=== PATIENT | female | born 1980 | race Caucasian/White ===

== ENCOUNTER 2019-01-18 08:33 | Emergency (ER) | payer MEDICARE, MEDICAID ==
--- NOTE | 2019-01-18 08:57 | EDM.PDOC ---
ED HPI GENERAL MEDICAL PROBLEM - General Chief Complaint: Syncope Stated Complaint: WEAK,UNRESPONSIVE Time Seen by Provider: 01/18/19 08:57 Source of Information: Reports: Patient, Family (mother) History Limitations: Reports: No Limitations - History of Present Illness INITIAL COMMENTS - FREE TEXT/NARRATIVE: 38-year-old female who is mildly mentally handicapped presents to the ED with both parents. Staying with her parents last night. She went down to have a shower this morning and mother was nearby. She appreciated that she went down in the shower and then attended her. She got out of the shower but then as she stood up she then fainted and mother had to help her down to the floor. She was unresponsive for a good 30 seconds but the when she came around she can converse normally and there was no shaking to suggest seizure-like activity. She has not yet had anything to eat or drink. She was getting ready to go to restoration this morning. Mother believes that she ate and drank all 3 meals yesterday. He lives alone at night usually. She denies being sick recently with any fever chills cough or sputum production. Denies that she was having any abdominal pain or cramping. Has not prone to urinary tract infection. On examination here she is definitely orthostatic with BP dropping to 83 systolic with standing and 102 lying. There's been no recent history of nausea vomiting or diarrhea. She currently takes no medications Onset: Today Onset Date: 01/18/19 Onset Time: 08:15 Duration: Minutes: Location: Reports: Generalized (Syncopal event occurred after getting out of the shower this morning. Was unresponsive for good 30 seconds. Mother witnessed the episode and she had no seizure-like activity.) Quality: Reports: Other Severity: Moderate (Syncopal event after getting out of the shower this morning) Improves with: Reports: Other Worsens with: Reports: None (Patient states she feels okay now.) Context: Reports: Other (Expresses syncopal event while in the shower this morning and went down to the floor after she was assisted out of the shower by her mother.). Denies: Activity, Exercise, Lifting, Sick Contact, Trauma Associated Symptoms: Reports: Malaise, Weakness. Denies: Confusion, Chest Pain , Cough, cough w sputum, Diaphoresis, Fever/Chills, Headaches, Loss of Appetite , Nausea/Vomiting, Rash, Seizure, Shortness of Breath, Syncope Treatments [employer]AND[employer]ACHINE: Reports: Other (see below) (None.) - Related Data Allergies Allergy/AdvReac Type Severity Reaction Status Date / Time No Known Allergies Allergy Verified 01/18/19 08:52 Home Meds: Home Meds Aspirin [Cyril Chewable] 81 mg PO DAILY 01/18/19 [History] Multivitamin [Multivitamins] 1 each PO DAILY 01/18/19 [History] Nitrofurantoin Monohyd/M-Cryst [Macrobid 100 mg Capsule] 100 mg PO BID #9 capsule 01/18/19 [Rx] Past Medical History - History Comment History Comment: Has microcephaly and Down syndrome Social & Family History - Living Situation & Occupation Living situation: Reports: Single Occupation: Unemployed (Patient is mentally handicapped due to Down syndrome and is unemployed. She does live outside her parents home usually alone during the night.) ED ROS GENERAL - Review of Systems Review Of Systems: See Below Constitutional: Reports: Weakness. Denies: Fever, Chills, Malaise, Fatigue ( This morning), Night Sweats, Diaphoresis, Decreased Appetite, Weight Loss, Weight Gain HEENT: Reports: Glasses, Hearing Loss (Left-sided hearing aid.), Other Respiratory: Reports: No Symptoms Cardiovascular: Reports: No Symptoms Endocrine: Reports: No Symptoms GI/Abdominal: Reports: No Symptoms : Reports: No Symptoms Musculoskeletal: Reports: No Symptoms Skin: Reports: No Symptoms Neurological: Reports: Syncope Psychiatric: Reports: No Symptoms (Fainted this morning after getting out of the shower) Hematologic/Lymphatic: Reports: No Symptoms Immunologic: Reports: No Symptoms - Physical Exam Exam: See Below Exam Limited By: Physical Impairment (Her speech is hard to discern at times. She has Down syndrome.) General Appearance: Alert, WD/WN, No Apparent Distress, Other (Her abdomen and chest or posterior back feel slightly warm to palpation. Temperatures recorded at 36.3 and will be rechecked) Eye Exam: Bilateral Eye: Normal Inspection Ears: Normal TMs, Other (Hearing aid left ear) Throat/Mouth: Other (Tongue is mildly dry and coated. Oropharynx otherwise clear ) Head Exam: Other (Microcephaly.) Neck: Normal Inspection, Supple, Non-Tender, Full Range of Motion. No: Lymphadenopathy (R) Respiratory/Chest: No Respiratory Distress, Lungs Clear, Normal Breath Sounds, No Accessory Muscle Use Cardiovascular: Normal Peripheral Pulses, Regular Rate, Rhythm, No Edema, No Murmur, No Rub GI/Abdominal: Normal Bowel Sounds, Soft, Non-Tender, No Organomegaly, No Abnormal Bruit, No Mass, Pelvis Stable Neuro Exam (Abbreviated): Alert, Oriented, CN II-XII Intact, Normal Cognition, Normal Reflexes Back Exam: Normal Inspection, Full Range of Motion. No: CVA Tenderness (L), CVA Tenderness (R) Extremities: Normal Inspection, Normal Range of Motion, Non-Tender, No Pedal Edema Psychiatric: Normal Mood Skin Exam: Warm, Dry, Intact, Normal Color, No Rash EKG INTERPRETATION EKG Date: 01/18/19 Time: 09:20 Rhythm: NSR Rate (Beats/Min): 60 [place]: Normal P-Wave: Enlarged (Consider left atrial hypertrophy. T wave is inverted in lead V1.) QRS: Normal ST-T: Normal QT: Normal EKG Interpretation Comments: Borderline ECG Course - Vital Signs Last Recorded V/S: Last Vital Signs Temp 36.3 C 01/18/19 08:48 Pulse 67 01/18/19 08:48 Resp 17 01/18/19 08:48 BP 118/72 01/18/19 08:48 Pulse Ox 100 01/18/19 08:48 Orthostatic Blood Pressure [ 100/61 Standing] Orthostatic Blood Pressure [ 97/58 Sitting] Orthostatic Blood Pressure [ 96/63 Supine] - Orders/Labs/Meds Orders: Active Orders 24 hr Category Date Time Status EKG Documentation Completion [RC] STAT Care 01/18/19 08:56 Active Orthostatic Vital Signs [RC] ASDIRECTED Care 01/18/19 08:55 Active Orthostatic Vital Signs [RC] ASDIRECTED Care 01/18/19 08:56 Active CULTURE URINE [RM] Stat Lab 01/18/19 11:30 Ordered Dextrose 5%-0.9% NaCl [Dextrose 5%-Normal Saline] 1,000 Med 01/18/19 09:00 Active ml IV ASDIRECTED Nitrofurantoin [place]/Macrocryst [Macrobid] Med 01/18/19 11:30 Once 100 mg PO ONETIME ONE Medication Orders Dextrose/Sodium Chloride (Dextrose 5%-Normal Saline) 1,000 mls @ 250 mls/hr IV ASDIRECTED GIOVANA Last Admin: 01/18/19 09:15 Dose: 999 mls/hr Labs: Laboratory Tests 01/18/19 01/18/19 01/18/19 Range/Units 09:05 09:05 09:05 WBC 4.91 (3.98-10.04) K/mm3 RBC 4.75 (3.98-5.22) M/mm3 Hgb 16.8 H (11.2-15.7) gm/L Hct 46.5 H (34.1-44.9) % MCV 97.9 H (79.4-94.8) fl MCH 35.4 H (25.6-32.2) pg MCHC 36.1 H (32.2-35.5) g/dl RDW Std Deviation 45.9 (36.4-46.3) fL Plt Count 213 (182-369) K/mm3 MPV 10.5 (9.4-12.3) fl Neutrophils % (Manual) 72 H (40-60) % Band Neutrophils % 0 (0-10) % Lymphocytes % (Manual) 20 (20-40) % Atypical Lymphs % 0 % Monocytes % (Manual) 8 (2-10) % Eosinophils % (Manual) 0 L (0.7-5.8) % Basophils % (Manual) 0 L (0.1-1.2) Platelet Estimate Adequate RBC Morph Comment Normal Sodium 139 (136-145) mEq/L Potassium 4.4 (3.5-5.1) mEq/L Chloride 104 (98-107) mEq/L Carbon Dioxide 26 (21-32) mEq/L Anion Gap 13.4 (5-15) BUN 20 H (7-18) mg/dL Creatinine 1.2 H (0.55-1.02) mg/dL Est Cr Clr Drug Dosing 57.20 mL/min Estimated GFR (MDRD) 50 (>60) mL/min BUN/Creatinine Ratio 16.7 (14-18) Glucose 97 (74-106) mg/dL Calcium 8.9 (8.5-10.1) mg/dL Total Bilirubin 0.7 (0.2-1.0) mg/dL AST 32 (15-37) U/L ALT 49 (14-59) U/L Alkaline Phosphatase 120 H (46-116) U/L Troponin I 0.019 (0.00-0.056) ng/mL C-Reactive Protein 2.2 H* (<1.0) mg/dL Total Protein 7.9 (6.4-8.2) g/dl Albumin 3.4 (3.4-5.0) g/dl Globulin 4.5 gm/dL Albumin/Globulin Ratio 0.8 L (1-2) HCG, Qual Negative (NEGATIVE) Urine Color (Yellow) Urine Appearance (Clear) Urine pH (5.0-8.0) Ur Specific [place] (1.005-1.030) Urine Protein (Negative) Urine Glucose (UA) (Negative) Urine Ketones (Negative) Urine Occult Blood (Negative) Urine Nitrite (Negative) Urine Bilirubin (Negative) Urine Urobilinogen (0.2-1.0) Ur Leukocyte Esterase (Negative) Urine RBC (0-5) /hpf Urine WBC (0-5) /hpf Ur Epithelial Cells (0-5) /hpf Amorphous Sediment (NOT SEEN) /hpf Urine Bacteria (FEW) /hpf Urine Mucus (FEW) /hpf 01/18/19 Range/Units 10:30 WBC (3.98-10.04) K/mm3 RBC (3.98-5.22) M/mm3 Hgb (11.2-15.7) gm/L Hct (34.1-44.9) % MCV (79.4-94.8) fl MCH (25.6-32.2) pg MCHC (32.2-35.5) g/dl RDW Std Deviation (36.4-46.3) fL Plt Count (182-369) K/mm3 MPV (9.4-12.3) fl Neutrophils % (Manual) (40-60) % Band Neutrophils % (0-10) % Lymphocytes % (Manual) (20-40) % Atypical Lymphs % % Monocytes % (Manual) (2-10) % Eosinophils % (Manual) (0.7-5.8) % Basophils % (Manual) (0.1-1.2) Platelet Estimate RBC Morph Comment Sodium (136-145) mEq/L Potassium (3.5-5.1) mEq/L Chloride (98-107) mEq/L Carbon Dioxide (21-32) mEq/L Anion Gap (5-15) BUN (7-18) mg/dL Creatinine (0.55-1.02) mg/dL Est Cr Clr Drug Dosing mL/min Estimated GFR (MDRD) (>60) mL/min BUN/Creatinine Ratio (14-18) Glucose (74-106) mg/dL Calcium (8.5-10.1) mg/dL Total Bilirubin (0.2-1.0) mg/dL AST (15-37) U/L ALT (14-59) U/L Alkaline Phosphatase (46-116) U/L Troponin I (0.00-0.056) ng/mL C-Reactive Protein (<1.0) mg/dL Total Protein (6.4-8.2) g/dl Albumin (3.4-5.0) g/dl Globulin gm/dL Albumin/Globulin Ratio (1-2) HCG, Qual (NEGATIVE) Urine Color Yellow (Yellow) Urine Appearance Clear (Clear) Urine pH 6.5 (5.0-8.0) Ur Specific [place] 1.010 (1.005-1.030) Urine Protein Negative (Negative) Urine Glucose (UA) Trace H (Negative) Urine Ketones Negative (Negative) Urine Occult Blood Negative (Negative) Urine Nitrite Negative (Negative) Urine Bilirubin Negative (Negative) Urine Urobilinogen 0.2 (0.2-1.0) Ur Leukocyte Esterase Trace H (Negative) Urine RBC 0-5 (0-5) /hpf Urine WBC 5-10 H (0-5) /hpf Ur Epithelial Cells 0-5 (0-5) /hpf Amorphous Sediment Few H (NOT SEEN) /hpf Urine Bacteria Few (FEW) /hpf Urine Mucus Few (FEW) /hpf Meds: Medications Generic Name Dose Route Start Last Admin Trade Name Freq PRN Reason Stop Dose Admin Dextrose/Sodium Chloride 1,000 mls @ 250 mls/hr 01/18/19 09:00 01/18/19 09:15 Dextrose 5%-Normal Saline IV 999 mls/hr ASDIRECTED GIOVANA Administration - Radiology Interpretation Free Text/Narrative:: 38-year-old female with Down syndrome presents to the ED after a syncopal event after getting out of the shower this morning at her parents home. She did state her parents home last night. Lives alone. You're getting ready for restoration. Mother was nearby and witnessed that she nearly went down are bent over in the shower. She ate or our the shower and after she stood up completely she then had a syncopal event when she required 8 to the floor. She did not fall or hurt herself. Mother aged her to the floor. After about 30 seconds to minutes she came around and she can speak normally there was no seizure-like activity. In the ED she is found to be orthostatic. BP was 102 systolic lying and 83 standing. Heart rate didn't change that much from 68-78. Examination is otherwise normal with no apparent reason for syncopal event. Her pressure is low. Plan IV D5 normal saline at open. Routine labs and a urinalysis to be obtained as well as an ECG. - Re-Assessments/Exams Free Text/Narrative Re-Assessment/Exam: 01/18/19 10:10 Labs reveal a normal white count at 4.91. Hemoglobin is slightly elevated at 16.8 with hematocrit of 46.5 and is getting some degree of hemoconcentration. MCV is 97.9. Platelet count is 213,000. Neutrophils 72% with no bands. Sodium 139 with potassium of 4.4. Chloride 1043 bicarbonate 26. And a gap is 13.4. BUN is 20 with a creatinine at 1.2. Estimated GFR is 50 BUN/ creatinine ratio 16.7. Glucose is 97 calcium is 8.9 liver function is normal other than slightly elevated alkaline phosphatase days at 120. Troponin I is less than 0.019 C-reactive protein is elevated slightly at 2.2. Total protein 7.9 . Serum hCG was negative 01/18/19 10:50 has completed a liter of IV fluids. Repeat orthostatic exam show blood pressure went up to 100. This makes her very prone to orthostatic hypotension changes. Possibly this was precipitated by hot shower this morning without anything to eat or drink yet today. Awaiting for her urinalysis. 01/18/19 11:30 urinalysis shows trace of leukocyte esterase with 5-10 process per per field. A urine culture will therefore be obtained. It is difficult to tell if she is symptomatic we'll place her on Macrobid 100 mg twice daily for the next 5 days to clear up infection. Departure - Departure Time of Disposition: 11:31 Disposition: Home, Self-Care 01 Condition: Fair Clinical Impression: Primary orthostatic hypotension, Lower urinary tract infection - Discharge Information *PRESCRIPTION DRUG MONITORING PROGRAM REVIEWED*: Not Applicable *COPY OF PRESCRIPTION DRUG MONITORING REPORT IN PATIENT OLIVE: Not Applicable Prescriptions: Nitrofurantoin Monohyd/M-Cryst [Macrobid 100 mg Capsule] 100 mg PO BID #9 capsule Instructions: Syncope, [id number], Hypotension, [id number] Referrals: Anastasia Park NP [Primary Care Provider] - Forms: ED Department Discharge Additional Instructions: Evaluation the emergency room today in regards to drop in blood pressure after showering and developing a syncopal event and collapse to the floor. This occurred from blood pressure dropping too low to supply the brain with adequate blood supply. Testing in the ED at the initial lesion revealed that she did have significant low blood pressure or orthostatic hypotension when you stood up. Usually is from inadequate fluid or volume intake over the last day or 2. I also felt that you had a low-grade fever. Blood workup did not show any elevated white blood cell count but did reveal increased pus cells in the urine suggestive of a low-grade urinary tract infection. Her pressure improved after a liter of IV fluids. You received first tablet of antibiotic for suspected urinary tract infection with Macrobid 100 mg by mouth in the ED. May need Tylenol 650 mg every 6 hours today for fever relief. Ache Macrobid is to be taken twice daily for the next morning half days to clear up infection. The next tablet would be due after supper tonight. Suggest plenty of fluids on a daily basis such as at least one 20 ounce bottle of Gatorade daily to try and keep her blood pressure up as it tends to run very low. This makes you very prone to fainting especially in any kind of hot environment such as a hot tub. Showering. After exercise or standing in one place with winter clothing on etc. - My Orders Last 24 Hours: My Active Orders 01/18/19 08:55 Orthostatic Vital Signs [RC] ASDIRECTED 01/18/19 08:56 EKG Documentation Completion [RC] STAT Orthostatic Vital Signs [RC] ASDIRECTED 01/18/19 09:00 Dextrose 5%-0.9% NaCl [Dextrose 5%-Normal Saline] 1,000 ml IV ASDIRECTED 01/18/19 11:30 CULTURE URINE [RM] Stat Nitrofurantoin [place]/Macrocryst [Macrobid] 100 mg PO ONETIME ONE - Assessment/Plan Last 24 Hours: My Active Orders 01/18/19 08:55 Orthostatic Vital Signs [RC] ASDIRECTED 01/18/19 08:56 EKG Documentation Completion [RC] STAT Orthostatic Vital Signs [RC] ASDIRECTED 01/18/19 09:00 Dextrose 5%-0.9% NaCl [Dextrose 5%-Normal Saline] 1,000 ml IV ASDIRECTED 01/18/19 11:30 CULTURE URINE [RM] Stat Nitrofurantoin [place]/Macrocryst [Macrobid] 100 mg PO ONETIME ONE
[2019-01-18] MEDS ORDERED: Dextrose 5%-0.9% NaCl 1,000 ML IV SCH (09:00)
[2019-01-18] MEDS ORDERED: Dextrose 5%-0.9% NaCl 1,000 ML ONE (09:12)
[2019-01-18] MEDS ORDERED: Nitrofurantoin Monohydrate/Macrocrystalline 100 MG Cap PO ONE (11:30)
== END 2019-01-18 11:51 | disposition home or self-care (01) ==
LOC: JD.ED 08:33
DX: I95.1 Orthostatic hypotension (principal); N39.0 Urinary tract infection, site not specified; Z79.82 Long term (current) use of aspirin
CPT/HCPCS: 36415; 80053; 81001; 84484; 84703; 85007; 85027; 86140; 87086; 93005; 96360; 99285; A9270; J7042; 93010

== ENCOUNTER 2025-04-30 07:09 | Emergency (ER) | payer MEDICARE, MEDICAID ==
[2025-04-30 08:00] LABS: HEMATOCRIT 47.3 % (37.0-47.0); HEMOGLOBIN 17.5 gm/dl (12.0-16.0); LYMPHOCYTES ABSOLUTE AUTO 0.9 K/mm3 (1.0-4.8); LYMPHOCYTES PERCENT AUTO 22.3 % (24.0-44.0); MEAN CORPUSCULAR HEMOGLOBIN 35.9 pg (28.0-32.0); MEAN CORPUSCULAR VOLUME 96.9 fl (83.0-99.0); MEAN PLATELET VOLUME 10.4 fl (9.4-12.3); MONOCYTES ABSOLUTE AUTO 0.5 K/mm3 (0.0-0.8); NEUTROPHILS ABSOLUTE AUTO 2.6 K/mm3 (1.8-7.7); NEUTROPHILS PERCENT AUTO 63.7 % (41.0-71.0); PLATELET COUNT,PLT 202 K/mm3 (150-400); RED BLOOD CELL COUNT 4.88 M/mm3 (4.10-5.30); WHITE BLOOD CELL COUNT,WBC 4.08 K/mm3 (3.9-11.3)
[2025-04-30 08:21] LABS: SLIDE REVIEW ABNORMAL SMEAR
[2025-04-30 08:25] LABS: A/G RATIO 0.8 (1-2); ALBUMIN 3.2 g/dl (3.4-5.0); ANION GAP 12.3 (5-15); BILIRUBIN TOTAL 1.1 mg/dL (0.2-1.0); BUN/CREATININE RATIO 25.5 (14-18); C-REACTIVE PROTEIN 1.62 mg/dL (<0.30); CALCIUM 9.3 mg/dL (8.5-10.1); CREATININE 1.1 mg/dL (0.55-1.02); EST CRCL DRUG DOSING (CG) 46.88 mL/min; POTASSIUM,K 4.3 mEq/L (3.5-5.1); PROTEIN TOTAL,TP 7.4 g/dl (6.4-8.2)
[2025-04-30 09:31] LABS: APPEARANCE,URINE CLEAR (Clear); BILIRUBIN,URINE NEGATIVE (Negative); COLOR,URINE YELLOW (Yellow); GLUCOSE,URINE NEGATIVE (Negative); KETONES,URINE NEGATIVE (Negative); LEUKOCYTE ESTERASE,URINE 2+ (Negative); NITRITE,URINE NEGATIVE (Negative); OCCULT BLOOD,URINE NEGATIVE (Negative); PROTEIN,URINE NEGATIVE (Negative); UROBILINOGEN,URINE 0.2 (0.2-1.0)
[2025-04-30 09:39] LABS: BACTERIA,URINE MODERATE /hpf (FEW); MUCUS,URINE FEW /hpf (FEW); RBC,URINE 0-5 /hpf (0-5)
== END 2025-04-30 10:05 | disposition home or self-care (01) ==
LOC: JD.ED 07:09
DX: S09.90XA Unspecified injury of head, initial encounter (principal); M54.50 Low back pain, unspecified; W19.XXXA Unspecified fall, initial encounter
CPT/HCPCS: 36415; 70450; 70450-26; 72100; 72100-26; 80053; 81001; 84484; 85025; 86140; 93005; 93010; 99283; 99284